=== PATIENT | female | born 1960 | race African-American/Black ===

== ENCOUNTER 2016-10-31 00:12 | Emergency (ER) | payer MEDICARE ==
--- NOTE | 2016-10-31 00:56 | ED ---
Head Injury - HPI Summary HPI Summary: Dementia and Alzheimer's pt here w/ fall from bed tonight. Pt was found by SUPERVISOR CALIBRATION upon answering call sparks sleeping on her Lt side on the floor, parallel to her bed (she resides at [facility]). Laceration over Lt eyebrow - bleeding. Also concern for Lt hip fx - report of leg being longer and externally rotated. No comments in notes if pt is same or worse from baseline mental status. She personally has no comments, non-verbal. Asked multiple times if she is in pain - no response, just staring. Pt appears to take medications for chronic pain (tramadol) and medication for anxiety and insomnia. - History Of Current Complaint Hx Obtained From: Family/Supervisor Photostat - Report from senior living Pain Intensity: 5 <Sommer Juarez - Last Filed: 10/31/16 21:47> <Reynold Garcia - Last Filed: 10/31/16 23:18> - History Of Current Complaint Chief Complaint: EDGeneral Stated Complaint: FALL Time Seen by Provider: 10/31/16 00:28 - Allergies/Home Medications Allergies/Adverse Reactions: Allergies Allergy/AdvReac Type Severity Reaction Status Date / Time No Known Allergies Allergy Verified 10/31/16 00:45 Home Medications: Home Medications Acetaminophen 500 mg PO BID 10/31/16 [History Confirmed 10/31/16] Cholecalciferol [Vitamin D] 2,000 unit PO DAILY 10/31/16 [History Confirmed 02/09] Clonazepam 0.5 mg PO BID 10/31/16 [History Confirmed 10/31/16] Docusate Sodium [Colace] 100 mg PO BID 10/31/16 [History Confirmed 10/31/16] Melatonin 5 mg PO BEDTIME 10/31/16 [History Confirmed 10/31/16] Rivastigmine PATCH 4.6 MG(NF) [Exelon(NF)] 4.6 mg TRANSDERM Q24H 10/31/16 [ History Confirmed 10/31/16] Tramadol HCl [Ultram] 50 mg PO Q6H 10/31/16 [History Confirmed 10/31/16] PMH/Surg Hx/FS Hx/Imm Hx Previously Healthy: Yes Endocrine/Hematology History: Denies: Hx Anticoagulant Therapy Musculoskeletal History: Reports: Other Musculoskeletal History - chronic pain Neurological History: Reports: Other Neuro Impairments/Disorders - dementia, Alzheimer's Psychiatric History: Reports: Other Psychiatric Issues/Disorders - insomnia Infectious Disease History: Unable to Obtain/Confirm Infectious Disease History: Denies: Traveled Outside the [place] in Last 30 Days - Family History Known Family History: Positive: Unknown - pt nonverbal - Social History Occupation: Disabled Lives: At [facility] Alcohol Use: Rare Hx Substance Use: No Substance Use Type: Reports: None Smoking Status (MU): Former Smoker <Sommer Juarez - Last Filed: 10/31/16 21:47> Review of Systems - ROS Summary Review of Systems Summary: Level 5 caveat - severe dementia/non-verbal Skin: Other - see HPI All Other Systems Reviewed And Are Negative: Yes <Sommer Juarez - Last Filed: 10/31/16 21:47> Physical Exam Triage Information Reviewed: Yes Vital Signs On Initial Exam: Initial Vitals Temp Pulse Resp BP Pulse Ox 98.1 F 62 12 124/89 97 10/31/16 00:20 10/31/16 00:20 10/31/16 00:20 10/31/16 00:20 10/31/16 00:20 Vital Signs Reviewed: Yes Appearance: Positive: No Pain Distress - Pt sitting upright in bed - eyes closed. Does not respond to verbal stimulation but does respond to sternal rub by opening eyes - heart rate increases as well, Well-Nourished Skin: Positive: Warm - laceration over Lt eyebrow - crusted, coagulated blood here - bleed easily w/ palpation -no gross deformity, no laxity of bones, no pain response w/ palpation Head/Face: Positive: Other - see above Eyes: Positive: Normal, ANTONIETTA - difficulty assesing EOMI as pt does not respond well to command of moving eyes, Conjunctiva Clear ENT: Positive: Other - unable to asses mouth as pt does not open mouth when asked Dental: Negative: Dental Fracture @ Neck: Positive: Supple, Nontender Respiratory/Lung Sounds: Positive: Clear to Auscultation, Breath Sounds Present. Negative: Rales, Rhonchi, Subcutaneous Emphysema, Stridor, Tracheal Deviation, Wheezes Cardiovascular: Positive: Normal, RRR, Pulses are Symmetrical in both Upper and Lower Extremities, S1, S2. Negative: Murmur, Rub, Leg Edema Left, Leg Edema Right Abdomen Description: Positive: Nontender - pt does not respond to abdominal palpation Bowel Sounds: Positive: Present Musculoskeletal: Positive: Other - pt does not move limbs upon request; she does not respond w/ palpation and passive movement of limbs; she does not appear to have any deformities nor asymmetric findings; legs are equal in length and w/o rotation, specifically hips are palpated and moved as well as femurs, tibias/fibulas, ankles and feet; pt does report she can feel me touching her toes but does not move toes when asked to do so Neurological: Positive: Other - limited d/t dementia - pt does open her eyes at times - again, does not verbally respond to questions but does squeeze my fingers when asked to do so Psychiatric: Positive: Other - non-verbal, no facial expression and eyes closed most of time; when eyes are open, she appears to be following people moving <Sommer Juarez - Last Filed: 10/31/16 21:47> Vital Signs On Initial Exam: Initial Vitals Temp Pulse Resp BP Pulse Ox 98.1 F 62 12 124/89 97 10/31/16 00:20 10/31/16 00:20 10/31/16 00:20 10/31/16 00:20 10/31/16 00:20 <Reynold Garcia - Last Filed: 10/31/16 23:18> Procedures - Laceration/Wound Repair 1 Location: face - Lt eyebrown Description: Linear Length, Depth and Shape: 0.5cm x 3mm Laceration/Wound Explored: clean Closure: Skin Adhesive, SteriStrips Sterile Dressing Applied?: Yes - steristrip/dermabond <Sommer Juarez - Last Filed: 10/31/16 21:47> Diagnostics - Vital Signs Vital Signs Temp Pulse Resp BP Pulse Ox 10/31/16 00:20 98.1 F 62 12 124/89 97 <Sommer Juarez - Last Filed: 10/31/16 21:47> - Vital Signs Vital Signs Temp Pulse Resp BP Pulse Ox 10/31/16 03:30 53 11 103/69 98 10/31/16 03:02 98.4 F 10/31/16 03:00 16 123/79 10/31/16 02:30 64 14 127/75 97 10/31/16 02:00 64 10 117/73 97 10/31/16 01:30 58 10 112/67 97 10/31/16 01:15 107/65 10/31/16 01:05 60 9 96 10/31/16 01:00 58 10 115/78 96 10/31/16 00:30 58 13 116/73 97 10/31/16 00:20 98.1 F 62 12 124/89 97 - Laboratory Lab Results: Lab Results 10/31/16 Range/Units 02:08 POC Glucose (mg/dL) 138 H (74-106) mg/dL Lab Statement: Any lab studies that have been ordered have been reviewed, and results considered in the medical decision making process. <Reynold Garcia - Last Filed: 10/31/16 23:18> Head Injury Course/Dx Course Of Treatment: Pt has severe dementia/alzheimer's disease. She was sent to ED by ambulance for c/o found on floor next to bed w/ head laceration. After pt's repsonse level was established, a thorough examination was performed from head to toe for potential injury. Pt's head and neck were CT'd and WNL. Her Lt eyebrow lac was repaired. D/c instruction clearly indicate when pt should seek medical attention/return to ED. Discussed case w/ Dr. Garcia who agrees w/ plan. - Physician Notifications Discussed Care Of Patient With: Dr. Garcia - also evaluated pt <Sommer Juarez - Last Filed: 10/31/16 21:47> <Reynold Garcia - Last Filed: 10/31/16 23:18> - Diagnoses Provider Diagnoses: Head injury Discharge <Sommer Juarez - Last Filed: 10/31/16 21:47> <Reynold Garcia - Last Filed: 10/31/16 23:18> - Discharge Plan Condition: Stable Disposition: [facility] Patient Education Materials: Fall Prevention for Older Adults (ED), Skin Adhesive Care (ED), Steristrips (ED), Facial Laceration (ED) Referrals: Betty Odom MD [Primary Care Provider] - Additional Instructions: Keep wound area clean and dry - do not remove steristrips - they will come off when they are ready. You may apply ice to the area for swelling reduction. You may provide ibuprofen or tylenol for pain relief. Patient's head and neck CT are without acute findings for fracture, dislocation, etc. Follow-up with PCP this week. If patient reports pain or acts differently, seek medical attention for assessment. *If her baseline mentation changes and/or she develops fever, chills, vomiting, drainage or redness around wound, return to ED
[2016-10-31 03:33] VITALS: BP 103/69
--- NOTE | 2016-10-31 09:56 | RAD ---
Indication: Fall with laceration at the LEFT eyebrow. Baseline dementia. Comparison: None. Technique: Noncontrast CT vertex of skull through foramen magnum. Report: Moderate prominence of the cerebral sulci. Unremarkable ventricles and basal cisterns. Negative for echavarria matter white matter obscuration, intra or extra-axial hemorrhage, or mass effect. Unremarkable orbital contents. Negative for calvarial or skull base fracture. Negative for scalp hematoma. The visualized paranasal sinuses and mastoid air spaces are clear. IMPRESSION: 1. Mild to moderate involutional change. 2. No traumatic injury or acute intracranial process evident.
--- NOTE | 2016-10-31 10:03 | RAD ---
Indication: Fall with laceration over the LEFT eyebrow. Comparison: None. Technique: Noncontrast CT thoracic spine. Multiplanar reformation. Report: Negative for vertebral body or posterior element fracture or facet subluxation at any level. Negative for paravertebral hematoma. Multilevel degenerative spondylosis and posterior element osteoarthritis. Congenitally short pedicles predispose to acquired spinal stenosis. At C2-C3 annular disc bulge results in mild to moderate acquired central canal stenosis. At C3-C4 annular disc bulge results in mild to moderate acquired central canal stenosis and uncinate process spurring results in moderate LEFT foraminal stenosis. At C4-C5 dorsal disc osteophyte complex results in mild to moderate acquired central canal stenosis and uncinate process spurring results in mild RIGHT and moderate LEFT foraminal stenosis. At C5-C6 dorsal disc osteophyte complex results in mild acquired central canal stenosis. Uncinate process spurring and facet joint osteoarthritis results in moderately severe LEFT foraminal stenosis. At C6-C7 dorsal disc osteophyte complex results in mild to moderate acquired central canal stenosis and uncinate process spurring results in moderate LEFT foraminal stenosis. At C7-T1 dorsal disc osteophyte complex results in moderate acquired central canal stenosis and uncinate process spurring and facet joint osteoarthritis results in moderate LEFT foraminal stenosis. IMPRESSION: 1. No evidence for traumatic cervical spine injury. 2. Multilevel degenerative spondylosis and posterior element osteoarthritis superimposed on congenitally short pedicles results in multilevel central canal and foraminal stenosis as described.
== END 2016-10-31 03:02 ==
LOC: ED 00:12
DX: S01.112A Laceration without foreign body of left eyelid and periocular area, initial encounter (principal); W06.XXXA Fall from bed, initial encounter; Y92.129 Unspecified place in nursing home as the place of occurrence of the external cause; G89.29 Other chronic pain; F41.9 Anxiety disorder, unspecified; G47.00 Insomnia, unspecified; G30.9 Alzheimer's disease, unspecified; F02.80 Dementia in other diseases classified elsewhere, unspecified severity, without behavioral disturbance, psychotic disturbance, mood disturbance, and anxiety; S09.90XA Unspecified injury of head, initial encounter
CPT/HCPCS: 12011; 70450; 72125; 99283

== ENCOUNTER 2017-07-23 17:52 | Emergency (ER) | payer MEDICARE, MEDICAID ==
[2017-07-23] MEDS ORDERED: NS 0.9% 1000 ML* 1,000 ML IV SCH (18:45)
--- NOTE | 2017-07-23 19:14 | RAD ---
HISTORY: Fall, head injury COMPARISONS: October 31, 2016 TECHNIQUE: Multiple contiguous axial CT scans were obtained of the head without intravenous contrast. FINDINGS: HEMORRHAGE/INFARCT: There is no hemorrhage or acute infarct. MASSES/SHIFT: There is no mass or shift. EXTRA-AXIAL SPACES: There are no extra-axial fluid collections. SULCI AND VENTRICLES: There is diffuse and proportional enlargement of the sulci and ventricles. CEREBRUM: There are no focal parenchymal abnormalities. BRAINSTEM: There are no focal parenchymal abnormalities. CEREBELLUM: There are no focal parenchymal abnormalities. VESSELS: The vessels are grossly normal. PARANASAL SINUSES: The paranasal sinuses are clear. ORBITS: The orbits are unremarkable. BONES AND SOFT TISSUE: No bone or soft tissue abnormalities are noted. OTHER: None IMPRESSION: NO ACUTE INTRACRANIAL PATHOLOGY.
--- NOTE | 2017-07-23 19:15 | RAD ---
HISTORY: Facial trauma, fall COMPARISONS: None TECHNIQUE: Multiple contiguous axial CT scans were obtained of the face without intravenous contrast, with coronal and sagittal multiplanar reformations. FINDINGS: BONES: There is no displaced fracture or dislocation. The orbital rim is intact. The zygomatic arch is intact. The pterygoid plates are intact. ORBITS: The globes are round. The optic nerves are symmetric. The extraocular musculature is normal. There is no post septal or intraconal inflammatory change. There is no retrobulbar hematoma. PARANASAL SINUSES: The paranasal sinuses are clear. The nasal septum is deviated to the left. BRAIN AND SOFT TISSUE: Unremarkable. OTHER: None. IMPRESSION: NO FACIAL FRACTURE
--- NOTE | 2017-07-23 19:17 | RAD ---
HISTORY: Fall, head trauma COMPARISONS: October 31, 2016 TECHNIQUE: Multiple contiguous axial CT scans were obtained of the cervical spine without intravenous contrast, with coronal and sagittal multiplanar reformations. FINDINGS: BRAIN: The visualized brain is unremarkable CENTRAL CANAL: Evaluation of the central canal is limited on CT technique; however, there is no obvious canalicular mass or epidural hemorrhage. ALIGNMENT: There is straightening of the cervical lordosis. VERTEBRAL BODIES: There is multilevel anterolateral marginal osteophyte formation. There is no displaced fracture. There is fusiform narrowing of the central canal secondary to congenitally short pedicles. JOINTS: There is diffuse and vertebral facet hypertrophic change. There is left grade right neural foraminal narrowing most pronounced at C4-C5, C5-C6, and C6-C7 MUSCULATURE: Unremarkable INTERVERTEBRAL DISCS: There is diffuse loss of intervertebral disc height. AXIAL IMAGES: As noted above, there is fusiform narrowing of the central canal secondary to congenital short pedicles. There is neural foraminal narrowing as right above. SOFT TISSUES: The thyroid gland is heterogeneous. The prevertebral soft tissues are normal. OTHER: None. IMPRESSION: 1. DEGENERATIVE DISC DISEASE AND OSTEOARTHRITIS. 2. NO ACUTE OSSEOUS INJURY TO THE CERVICAL SPINE. 3. FUSIFORM NARROWING OF THE CENTRAL CANAL SECONDARY TO CONGENITALLY SHORT PEDICLES. (THE RIGHT MULTILEVEL NEURAL FORAMINAL NARROWING.
[2017-07-23 19:35] LABS: Hematocrit 35 % (35-47); Hemoglobin 11.2 g/dl (12.0-16.0); Mean Corpuscular HGB Conc 32 g/dl (31-36); Mean Corpuscular Hemoglobin 28 pg (27-31); Mean Corpuscular Volume 87 fL (80-97); Mean Platelet Volume 8 um3 (7.4-10.4); Red Blood Count 3.99 10^6/ul (4.0-5.4); Red Cell Distribution Width 15 % (10.5-15); White Blood Count 11.2 10^3/ul (3.5-10.8)
[2017-07-23 19:51] LABS: Albumin 3.4 g/dL (3.2-5.2); BUN/Creatinine Ratio 31.1 (8-20); C Reactive Protein 3.94 mg/L (< 5.00); Calcium 9.6 mg/dL (8.6-10.3); EGFR African American 130.5 (>60); EGFR Non-African American 101.5 (>60); Globulin 3.7 g/dL (2-4); Total Bilirubin 0.2 mg/dL (0.2-1.0); Total Protein 7.1 g/dL (6.4-8.9)
[2017-07-23] MEDS ORDERED: Lidocaine 1% MPF wEPI 200,000* 30 ML SDV INJ ONE (20:00)
[2017-07-23] MEDS ORDERED: Lidocaine 2% EPI 1:200000 MPF* 20 ML VIAL ONE (20:04)
[2017-07-23 20:32] LABS: TSH (Thyroid Stimulating Horm) 0.35 mcIU/mL (0.34-5.60)
--- NOTE | 2017-07-23 20:35 | PN ---
Progress Note - Progress Note Date of Service: 07/23/17 Note: laceration repair done by Sahra SWAIN right eyebrow laceration 2cm by 1/2cm cleaned area with 100 saline lidocaine with epi prolene 6-0 and chromic gut 6 sutures layered closure 1 deep and 5 superficial
[2017-07-23 22:17] VITALS: BP 131/73
--- NOTE | 2017-07-24 00:10 | ED ---
Lynda Boyle Emily, scribed for ReganCasey on 07/23/17 at 1954 . Head Injury - HPI Summary HPI Summary: UNABLE TO OBTAIN FULL HPI DUE TO LEVEL 5 CAVEAT - LETHARGIC This patient is a 57 year old F BIBA to [facility] with a chief complaint of head injury that occurred at 1700. According to patients mcc, pt fell forward out of wheelchair and hit her forehead. - History Of Current Complaint Chief Complaint: EDHeadInjury Stated Complaint: FALL/FACIAL LAC Time Seen by Provider: 07/23/17 19:19 Hx Obtained From: Family/Box Car Bracer Hx From Patient Unobtainable Due To: Other - Lethargic Onset/Duration: Started Hours Ago, Still Present Severity Currently: Mild Severity Initially: Mild Pain Intensity: 0 Pain Scale Used: 0-10 Numeric - Allergies/Home Medications Allergies/Adverse Reactions: Allergies Allergy/AdvReac Type Severity Reaction Status Date / Time No Known Allergies Allergy Verified 10/31/16 00:45 PMH/Surg Hx/FS Hx/Imm Hx Previously Healthy: No - UNABLE TO OBTAIN FULL Hx DUE TO LEVEL 5 CAVEAT - LETHARGIC Endocrine/Hematology History: Denies: Hx Anticoagulant Therapy, Hx Blood Disorders Musculoskeletal History: Reports: Other Musculoskeletal History - chronic pain Neurological History: Reports: Other Neuro Impairments/Disorders - dementia, Alzheimer's Psychiatric History: Reports: Other Psychiatric Issues/Disorders - insomnia Infectious Disease History: No Infectious Disease History: Denies: Traveled Outside the [place] in Last 30 Days - Family History Known Family History: Positive: Unknown - pt nonverbal - Social History Alcohol Use: Rare Hx Substance Use: No Substance Use Type: Reports: None Smoking Status (MU): Former Smoker Review of Systems - ROS Summary Review of Systems Summary: UNABLE TO OBTAIN FULL ROS DUE TO LEVEL 5 CAVEAT - LETHARGIC Positive: Other - Positive head injury All Other Systems Reviewed And Are Negative: Yes Physical Exam Triage Information Reviewed: Yes Vital Signs On Initial Exam: Initial Vitals Temp Pulse Resp BP Pulse Ox 99.0 F 70 18 136/78 98 07/23/17 18:16 07/23/17 18:16 07/23/17 18:16 07/23/17 18:16 07/23/17 18:16 Vital Signs Reviewed: Yes Completion Of Physical Exam Limited Due To: Level 5 - Lethargic Appearance: Positive: Well-Appearing, No Pain Distress Skin: Positive: Warm, Skin Color Reflects Adequate Perfusion, Dry Head/Face: Positive: Other - 2 cm laceration of the forehead above R eyeball. Eyes: Positive: EOMI, ANTONIETTA ENT: Positive: Normal ENT inspection Neck: Positive: Supple, Nontender Respiratory/Lung Sounds: Positive: Clear to Auscultation, Breath Sounds Present Cardiovascular: Positive: RRR, Pulses are Symmetrical in both Upper and Lower Extremities Abdomen Description: Positive: Nontender, Soft Bowel Sounds: Positive: Present Musculoskeletal: Positive: Normal, Strength/ROM Intact Neurological: Positive: Normal, Sensory/Motor Intact, Other - Lethargic Diagnostics - Vital Signs Vital Signs Temp Pulse Resp BP Pulse Ox 07/23/17 18:30 69 17 136/78 97 07/23/17 18:18 72 16 98 07/23/17 18:16 99.0 F 70 18 127/78 98 - Laboratory Lab Results: Lab Results 07/23/17 07/23/17 Range/Units 19:27 19:27 WBC 11.2 H (3.5-10.8) 10^3/ul RBC 3.99 L (4.0-5.4) 10^6/ul Hgb 11.2 L (12.0-16.0) g/dl Hct 35 (35-47) % MCV 87 (80-97) fL MCH 28 (27-31) pg MCHC 32 (31-36) g/dl RDW 15 (10.5-15) % Plt Count 244 (150-450) 10^3/ul MPV 8 (7.4-10.4) um3 Neut % (Auto) 64.2 (38-83) % Lymph % (Auto) 23.0 L (25-47) % Branch % (Auto) 10.1 H (1-9) % Eos % (Auto) 2.3 (0-6) % Baso % (Auto) 0.4 (0-2) % Absolute Neuts (auto) 7.2 (1.5-7.7) 10^3/ul Absolute Lymphs (auto) 2.6 (1.0-4.8) 10^3/ul Absolute Monos (auto) 1.1 H (0-0.8) 10^3/ul Absolute Eos (auto) 0.3 (0-0.6) 10^3/ul Absolute Basos (auto) 0 (0-0.2) 10^3/ul Absolute Nucleated RBC 0.01 10^3/ul Nucleated RBC % 0 INR (Anticoag Therapy) 0.94 (0.89-1.11) APTT 29.3 (26.0-36.3) seconds Result Diagrams: 07/23/17 19:27 07/23/17 19:27 Lab Statement: Any lab studies that have been ordered have been reviewed, and results considered in the medical decision making process. - CT Maxillofacial CT CT Interpretation Completed By: Radiologist - Maxillofacial CT read by radiologist reveals NO FACIAL FRACTURE. ED physician has reviewed this radiology report and agrees. Cervical Spine CT Interpretation Completed By: Radiologist - Cervical Spine CT read by radiologist reveals 1. DEGENERATIVE DISC DISEASE AND OSTEOARTHRITIS. 2. NO ACUTE OSSEOUS INJURY TO THE CERVICAL SPINE. 3. FUSIFORM NARROWING OF THE CENTRAL CANAL SECONDARY TO CONGENITALLY SHORT PEDICLES. (THE RIGHT MULTILEVEL NEURAL FORAMINAL NARROWING. ED physician has reviewed this radiology report and agrees. Brain CT Interpretation Completed By: Radiologist - Brain CT read by radiologist reveals NO ACUTE INTRACRANIAL PATHOLOGY. ED physician has reviewed this radiology report and agrees. Head Injury Course/Dx Assessment/Plan: Unable to obtain HPI due to level 5 caveat lethargic. This patient is a 57 year old F BIBA to [facility] with a chief complaint of head injury that occurred at 1700. According to patients mcc, pt fell forward out of wheelchair and hit her forehead. PMHx includes. Dementia. Physical Exam Findings. 2 cm laceration of the forehead above R eyeball. Lethargic. Medical Decision Making. Maxillofacial CT read by radiologist reveals NO FACIAL FRACTURE. Cervical Spine CT read by radiologist reveals 1. DEGENERATIVE DISC DISEASE AND OSTEOARTHRITIS. 2. NO ACUTE OSSEOUS INJURY TO THE CERVICAL SPINE. 3. FUSIFORM NARROWING OF THE CENTRAL CANAL SECONDARY TO CONGENITALLY SHORT PEDICLES. (THE RIGHT MULTILEVEL NEURAL FORAMINAL NARROWING. Brain CT read by radiologist reveals NO ACUTE INTRACRANIAL PATHOLOGY. Test results with no significant abnormalities. In the ED course the patient was given fluids and 1% lidocaine. Patient will be discharged with and follow up from PCP. The patient is agreeable with this plan. - Diagnoses Differential Diagnosis/HQI/PQRI: Cerebral Contusion, Concussion With LOC, Hematoma, Intracranial Bleed, Laceration, Orbital Fracture Provider Diagnoses: Head injury, Laceration, Fall, Dementia Discharge - Discharge Plan Condition: Stable Disposition: [facility] Patient Education Materials: Head Injury (ED), Laceration (ED) Referrals: Betty Odom MD [Primary Care Provider] - 3 Days Additional Instructions: Observe patient for 24 hours. Return to the emergency department for changing or worsening symptoms. Urgent care or primary for wound check in 2 days. Urgent care or primary for suture removal in 5 days The documentation as recorded by the Lynda sotelo Emily accurately reflects the service I personally performed and the decisions made by Regan colin Emmanuel.
== END 2017-07-23 22:15 ==
LOC: ED 17:52
DX: S09.90XA Unspecified injury of head, initial encounter (principal); F03.90 Unspecified dementia, unspecified severity, without behavioral disturbance, psychotic disturbance, mood disturbance, and anxiety; Z87.891 Personal history of nicotine dependence; W05.0XXA Fall from non-moving wheelchair, initial encounter; Y92.129 Unspecified place in nursing home as the place of occurrence of the external cause; S01.111A Laceration without foreign body of right eyelid and periocular area, initial encounter
CPT/HCPCS: 12011; 36415; 70450; 70486; 72125; 80053; 83605; 83690; 83735; 84443; 84484; 85025; 85610; 85730; 86140; 99285; J2001

== ENCOUNTER 2017-09-04 12:48 | Emergency (ER) | payer MEDICARE, MEDICAID ==
[2017-09-04 14:09] VITALS: BP 126/82
--- NOTE | 2017-09-04 17:11 | ED ---
Bronwyn Boyle Gabriel, scribed for Addi Courtney MD on 09/04/17 at 1324 . Laceration/Wound HPI - HPI Summary HPI Summary: This patient is a 57 year old F BIBA to [facility]. Patient is nonverbal and severely demented but has a laceration over the right eye. LEVEL 5 CAVEAT: HPI limited due to the patient being nonverbal and severely demented. - History of Current Complaint Stated Complaint: FALLS Time Seen by Provider: 09/04/17 13:05 Hx Obtained From: EMS, Other: - observation Hx From Patient Unobtainable Due To: Other - LEVEL 5 CAVEAT Pain Intensity: 0 - Allergy/Home Medications Allergies/Adverse Reactions: Allergies Allergy/AdvReac Type Severity Reaction Status Date / Time No Known Allergies Allergy Verified 10/31/16 00:45 PMH/Surg Hx/FS Hx/Imm Hx Previously Healthy: No Endocrine/Hematology History: Denies: Hx Anticoagulant Therapy, Hx Blood Disorders Musculoskeletal History: Reports: Other Musculoskeletal History - chronic pain Neurological History: Reports: Hx Dementia, Other Neuro Impairments/Disorders - dementia, Alzheimer's Psychiatric History: Reports: Other Psychiatric Issues/Disorders - insomnia - Immunization History Date of Tetanus Vaccine: unknown Infectious Disease History: No Infectious Disease History: Denies: Traveled Outside the [place] in Last 30 Days - Family History Known Family History: Positive: Unknown - pt nonverbal - Social History Alcohol Use: None Hx Substance Use: No Substance Use Type: Reports: None Smoking Status (MU): Former Smoker Review of Systems All Other Systems Reviewed And Are Negative: No Physical Exam - Summary Physical Exam Summary: Appearance: The patient is well-nourished Patient is poorly responsive but responds to pain with moaning Skin: The skin is warm and dry and skin color reflects adequate perfusion. HEENT: The head is normocephalic and atraumatic. The pupils are equal and reactive. The conjunctivae are clear and without drainage. Nares are patent and without drainage. Mouth reveals moist mucous membranes and the throat is without erythema and exudate. The external ears are intact. The ear canals are patent and without drainage. The tympanic membranes are intact.There is a 2 cm laceration over the right eyebrow. Neck: the neck is supple with full range of motion and non-tender. There are no carotid bruits. There is no neck vein distension. Respiratory: Chest is non-tender. Lungs are clear to auscultation and breath sounds are symmetrical and equal. Cardiovascular: Heart is regular rate and rhythm. There is no murmur or rub auscultated. There is no peripheral edema and pulses are symmetrical and equal. Abdomen: The abdomen is soft and non-tender. There are normal bowel sounds heard in all four quadrants and there is no organomegaly palpated. Musculoskeletal: There is no back tenderness noted. Extremities are non-tender with full range of motion. There is good capillary refill. There is no peripheral edema or calf tenderness elicited.. There seems to be no tenderness except to the laceration. Neurological: Patient is alert. The patient has symmetrical motor strength in all four extremities. Cranial nerves are grossly intact. Deep tendon reflexes are symmetrical and equal in all four extremities. LEVEL 5 CAVEAT: HPI limited due to the patient being nonverbal and severely demented. Triage Information Reviewed: Yes Vital Signs On Initial Exam: Initial Vitals Temp Pulse Resp BP Pulse Ox 98.5 F 62 16 104/64 100 09/04/17 12:53 09/04/17 12:53 09/04/17 12:53 09/04/17 12:53 09/04/17 12:53 Vital Signs Reviewed: Yes Completion Of Physical Exam Limited Due To: Level 5 - [place] Coma Scale Coma Scale Total: 11 Procedures - Laceration/Wound Repair 1 Location: head - above right eye Description: Linear Anesthesia: Local, 1.0% - lido Length, Depth and Shape: 2cm Betadine Prep?: No - Hibiclens Laceration/Wound Explored: clean Closure: Single Layer Suture Type: Nylon - 6.0 Number of Sutures: 7 Diagnostics - Vital Signs Vital Signs Temp Pulse Resp BP Pulse Ox 09/04/17 13:00 62 100 09/04/17 12:58 61 104/64 100 09/04/17 12:55 86 100 09/04/17 12:53 98.5 F 62 16 104/64 100 - Laboratory Lab Statement: Any lab studies that have been ordered have been reviewed, and results considered in the medical decision making process. Laceration Repair Course/Dx - Course Course Of Treatment: Ms. Lopes has severe dementia and has fallen out of her wheelchair many times. She sustained a laceration to her right forehead above her eyebrow today. It is hard to guage how she is doing as she is nonverbal at baseline. Her MOLST is clear that heroic measures are not wanted and therefore I will not obtain a CT at this time. I did repair her laceration. - Clinical Impression Provider Diagnoses: Facial laceration, Head injury Discharge - Discharge Plan Condition: Stable Disposition: HOME Patient Education Materials: Stitches Removal (ED) Referrals: Betty Odom MD [Primary Care Provider] - 5 Days Additional Instructions: Sutures can be removed after 5 days. RETURN TO THE EMERGENCY DEPARTMENT FOR CHANGING OR WORSENING SYMPTOMS. The documentation as recorded by the Bronwyn sotelo Gabriel accurately reflects the service I personally performed and the decisions made by me, Addi Courtney MD.
== END 2017-09-04 15:04 | disposition home or self-care (01) ==
LOC: ED 12:48
DX: S01.111A Laceration without foreign body of right eyelid and periocular area, initial encounter (principal); W05.0XXA Fall from non-moving wheelchair, initial encounter; Y93.9 Activity, unspecified; Y92.9 Unspecified place or not applicable; F03.90 Unspecified dementia, unspecified severity, without behavioral disturbance, psychotic disturbance, mood disturbance, and anxiety; Z87.891 Personal history of nicotine dependence
CPT/HCPCS: 12011; 99282

== ENCOUNTER 2017-09-23 16:15 | Emergency (ER) | payer MEDICARE, MEDICAID ==
--- NOTE | 2017-09-23 17:23 | RAD ---
INDICATION: Head injury. COMPARISON: Comparison is made with a prior study from July 15, 2017. TECHNIQUE: Contiguous axial sections of the brain were obtained from the skull base to the vertex without contrast. The exam is slightly limited due to motion artifact. FINDINGS: The ventricles, cisterns and sulci are within normal limits. No significant focal abnormality or mass effect is seen. There is no evidence for hemorrhage. There is focal soft tissue swelling in the scalp anterior to the frontal bones. No fracture is seen. The visualized portion of the paranasal sinuses and mastoid air cells appear clear. IMPRESSION: SLIGHTLY LIMITED EXAM, NO EVIDENCE FOR ACUTE INTRACRANIAL ABNORMALITY.
[2017-09-23 17:47] LABS: Hematocrit 38 % (35-47); Hemoglobin 12.1 g/dl (12.0-16.0); Mean Corpuscular HGB Conc 32 g/dl (31-36); Mean Corpuscular Hemoglobin 27 pg (27-31); Mean Corpuscular Volume 84 fL (80-97); Mean Platelet Volume 9 um3 (7.4-10.4); Platelet Count 199 10^3/ul (150-450); Red Blood Count 4.46 10^6/ul (4.0-5.4); Red Cell Distribution Width 13 % (10.5-15); White Blood Count 9.8 10^3/ul (3.5-10.8)
[2017-09-23 18:00] LABS: EGFR Non-African American 94.3 (>60)
[2017-09-23 18:02] LABS: Urine Appearance Cloudy; Urine Blood 1+ (Negative); Urine Color Yellow; Urine Ketones Negative (Negative); Urine Protein Negative (Negative); Urine Specific Gravity 1.029 (1.010-1.030); Urine Urobilinogen Negative (Negative)
--- NOTE | 2017-09-23 18:15 | RAD ---
INDICATION: Trauma. COMPARISON: Comparison is made with a prior CT of the brain from July 23, 2017. TECHNIQUE: Contiguous axial sections were obtained from the skull base through the T2 vertebra. Images were reconstructed in the sagittal and coronal planes. FINDINGS: There is straightening of the cervical spine with loss of the normal cervical lordosis. No prevertebral soft tissue swelling or fracture is seen. There is a faint renal lucent line extending through the lamina of the C2 vertebra on the right side which appears to correspond with a nutrient foramen. There are congenitally short pedicles giving rise to congenital spinal canal stenosis. At the C3-C4 level there is mild posterior uncinate process spurring and mild hypertrophic changes within the facet joints. There appears to be moderate spinal canal narrowing and moderate bilateral neural foraminal narrowing. At the C4-C5 level there is posterior uncinate process spurring and hypertrophic changes within the facet joints. There is moderate to severe spinal canal narrowing and moderate to severe bilateral neural foraminal narrowing. At the C5-C6 level there is posterior uncinate process spurring which is most prominent posterior laterally toward the left side giving rise to moderate spinal canal narrowing. There is mild neural foraminal narrowing on the right side and moderate to severe neural foraminal narrowing on the left side. At the C6-C7 level there is posterior uncinate process spurring. This gives rise to moderate spinal canal narrowing and moderate neural foraminal narrowing on the left side. At the C7-T1 level there is posterior uncinate process spurring giving rise moderate spinal canal narrowing and moderate neural foraminal narrowing on the left side. IMPRESSION: 1. STRAIGHTENING OF THE CERVICAL SPINE, NO EVIDENCE FOR FRACTURE OR SUBLUXATION. 2. CONGENITALLY SHORT PEDICLES AND DIFFUSE DEGENERATIVE DISC DISEASE AND FACET OSTEOARTHRITIS GIVING RISE TO SIGNIFICANT SPINAL CANAL NARROWING AT MULTIPLE LEVELS DESCRIBED.
--- NOTE | 2017-09-23 18:53 | RAD ---
INDICATION: Correlation responsive, status post fall. COMPARISON: There are no prior studies available for comparison. TECHNIQUE: A portable view of the chest was obtained. FINDINGS: Cardiac and mediastinal contours appear to be within normal limits. The lungs are underinflated and clear. No pleural effusion or pneumothorax is seen. IMPRESSION: NO EVIDENCE FOR ACUTE DISEASE.
[2017-09-23 22:21] VITALS: BP 114/73
--- NOTE | 2017-10-04 11:44 | ED ---
Ignacio Boyle Angela scribed for Sanjiv Siu MD on 09/23/17 at 1622 . Adult Trauma - HPI Summary HPI Summary: This pt is a 57 y/o female presenting to [facility] via EMS from [facility] after an unwitnessed fall. Pt is nonverbal, she has severe dementia. per EMS report, pt fell from her wheelchair. Pt was found face down on the floor in [facility]. Pt had another fall last week on 09/05/17 where she sustained a laceration above her right eyebrow. HPI IS LIMITED DUE TO LEVEL 5 CAVEAT - pt is nonverbal and is demented. - History of Current Complaint Stated Complaint: FALL Time Seen by Provider: 09/23/17 16:19 Hx Obtained From: Patient Hx From Patient Unobtainable Due To: Other - pt is nonverbal Mechanism of Injury: Fall Loss of Consciousness: unsure Onset/Duration: Started Hours Ago, Traumatic Pain Scale Used: unknown - level 5 caveat: pt is nonverbal Aggravating Factor(s): Other - unknown Alleviating Factor(s): Other - unknown - Allergy/Home Medications Allergies/Adverse Reactions: Allergies Allergy/AdvReac Type Severity Reaction Status Date / Time No Known Allergies Allergy Verified 10/31/16 00:45 PMH/Surg Hx/FS Hx/Imm Hx Endocrine/Hematology History: Denies: Hx Anticoagulant Therapy, Hx Blood Disorders Musculoskeletal History: Reports: Other Musculoskeletal History - chronic pain Neurological History: Reports: Hx Dementia, Other Neuro Impairments/Disorders - dementia, Alzheimer's Psychiatric History: Reports: Other Psychiatric Issues/Disorders - insomnia - Immunization History Date of Tetanus Vaccine: unknown - Family History Known Family History: Positive: Unknown - pt nonverbal - Social History Alcohol Use: None Hx Substance Use: No Substance Use Type: Reports: None Smoking Status (MU): Former Smoker Review of Systems - ROS Summary Review of Systems Summary: ROS IS LIMITED DUE TO LEVEL 5 CAVEAT - Pt is nonverbal. Negative: Fever Neurological: Other - dementia. Fall today. All Other Systems Reviewed And Are Negative: No Physical Exam - Summary Physical Exam Summary: Constitutional: Well-developed, Well-nourished, Alert. Pt is resisting attempts to open her eyes. Withdraws from painful stimulus. Skin: Warm, Dry HENT: Normocephalic; No Racoons eyes; No battles sign; No abrasion; No contusion ; No hemotympanum; No maxilla facial tenderness or instability; Dentition are smooth; No dental trauma; No trismus. There are sutures above her right eyebrow that appear to be healing into the wound. Eyes: EOM normal, PERRL Neck: Trachea is midline. No stridor; No JVD; No step off; No posterior cervical spine tenderness Cardio: Rhythm regular, rate normal Heart sounds normal; Intact distal pulses; The pedal pulses are 2+ and symmetric. Radial pulses are 2+ and symmetric. Pulmonary/Chest wall: Effort normal; Breath sounds normal; Equal chest rise; No flail segment; No rib tenderness; No sternal tenderness Abd: Soft, Appearance normal. No distension; No tenderness; No palpable pulsatile mass; No Cullens sign; No Clark-Turners sign Musculoskeletal: Full ROM and no tenderness at hips, ankles, shoulders, elbows and knees; No joint swelling; No vertebral body tenderness; No paraspinal tenderness; No step off or deformity of the spine; Pelvis is stable to lateral compression and rock Neuro: Alert. Strength 5/5 all extremities. Pt is resisting attempts to open her eyes. Withdraws from painful stimulus. : No blood at urethral meatus Psych: Mood and affect Normal Triage Information Reviewed: Yes Vital Signs Reviewed: Yes Diagnostics - Laboratory Result Diagrams: 09/23/17 17:35 09/23/17 17:35 Lab Statement: Any lab studies that have been ordered have been reviewed, and results considered in the medical decision making process. - Radiology Chest XR Xray Interpretation: No Acute Changes - IMPRESSION: No evidence for acute disease. Dr. Siu has reviewed this radiology report. Radiology Interpretation Completed By: Radiologist - CT Brain CT CT Interpretation: No Acute Changes - IMPRESSION: Slightly limited exam. No evidence for acute intracranial abnormality. Dr. Siu has reviewed this radiology report. CT Interpretation Completed By: Radiologist Cervical spine CT CT Interpretation: Positive (See Comments) - IMPRESSION: 1. Straightening of the cervical spine, no evidence for fracture or subluxation. 2. Congenitally short pedicles and diffuse degenerative disc disease and facet osteoarthritis giving rise to significant spinal canal narrowing at multiple levels as described. Dr. Siu has reviewed this radiology report. CT Interpretation Completed By: Radiologist Adult Trauma Course/Dx - Course Course Of Treatment: This pt is a 57 y/o female presenting to [facility] via EMS from [facility] after a fall. Pt is nonverbal, she has severe dementia. per EMS report, pt was found face down on the floor in [facility]. Pt had another fall last week on 09/05/17 where she sustained a laceration above her right eyebrow. HPI IS LIMITED DUE TO LEVEL 5 CAVEAT - pt is nonverbal and is demented. Brain CT shows slightly limited exam. No evidence for acute intracranial abnormality. Chest XR is negative. Cervical CT is negative for fracture. Pt's sutures were removed from prior laceration to right eyebrow on 09/04/17. Pt will be discharged to home. - Diagnoses Provider Diagnoses: Polypharmacy, Fall Discharge - Discharge Plan Condition: Stable Disposition: HOME Patient Education Materials: Fall Prevention (ED) Referrals: Betty Odom MD [Primary Care Provider] - Additional Instructions: Please follow up with your primary care provider. RETURN TO THE EMERGENCY DEPARTMENT FOR CHANGING OR WORSENING SYMPTOMS. The documentation as recorded by the Ignacio sotelo Angela accurately reflects the service I personally performed and the decisions made by , Sanjiv Siu MD.
== END 2017-09-23 22:21 | disposition home or self-care (01) ==
LOC: ED 16:15
DX: T50.901A Poisoning by unspecified drugs, medicaments and biological substances, accidental (unintentional), initial encounter (principal); F03.90 Unspecified dementia, unspecified severity, without behavioral disturbance, psychotic disturbance, mood disturbance, and anxiety; Z91.81 History of falling
CPT/HCPCS: 36415; 70450; 71010; 72125; 80053; 81003; 81015; 83605; 85027; 99282

== ENCOUNTER 2017-12-08 23:06 | Emergency (ER) | payer MEDICARE, MEDICAID ==
[2017-12-08] MEDS ORDERED: Ketorolac INJ* 30 MG/ML 1 ML VIAL IV PUSH ONE (23:53)
[2017-12-08] MEDS ORDERED: Metoclopramide IV* 5 MG/ML 2 ML VIAL IV SLOW PU ONE (23:53)
[2017-12-09 00:38] LABS: ABS Basophils 0 10^3/ul (0-0.2); ABS Eosinophils 0 10^3/ul (0-0.6); ABS Lymphocytes 0.8 10^3/ul (1.0-4.8); ABS Monocytes 0.8 10^3/ul (0-0.8); ABS Neutrophils 16.1 10^3/ul (1.5-7.7); ABS Nucleated RBC 0 10^3/ul; Eosinophil % 0 % (0-6); Hematocrit 34 % (35-47); Hemoglobin 11.3 g/dl (12.0-16.0); Lymphocyte % 4.6 % (25-47); Mean Corpuscular HGB Conc 33 g/dl (31-36); Mean Corpuscular Hemoglobin 28 pg (27-31); Mean Corpuscular Volume 83 fL (80-97); Mean Platelet Volume 9 um3 (7.4-10.4); Nucleated Red Blood Cells % 0.1; Platelet Count 229 10^3/ul (150-450); Red Blood Count 4.11 10^6/ul (4.0-5.4); Red Cell Distribution Width 17 % (10.5-15); White Blood Count 17.8 10^3/ul (3.5-10.8)
[2017-12-09 01:37] LABS: Urine Appearance Cloudy; Urine Blood Negative (Negative); Urine Color Yellow; Urine Ketones Negative (Negative); Urine Protein Negative (Negative); Urine Specific Gravity 1.025 (1.010-1.030); Urine Urobilinogen Negative (Negative)
[2017-12-09] MEDS ORDERED: Metoclopramide IV* 5 MG/ML 2 ML VIAL IV ONE (05:17)
[2017-12-09] MEDS ORDERED: PROCHLORPERAZINE INJ 5 MG/ML 2 ML VIAL IV ONE (08:02)
[2017-12-09] MEDS ORDERED: Levofloxacin 750 MG IVPREMIX(* 750 MG/150 ML BAG IVPB ONE (08:09)
--- NOTE | 2017-12-09 08:11 | RAD ---
INDICATION: Vomiting COMPARISON: None TECHNIQUE: Noncontrast axial source images were obtained from the hemidiaphragms to the symphysis pubis. This examination was ordered using a renal stone protocol which is performed without oral or intravenous contrast and therefore has inherent limitations when used to evaluate other intra-abdominal or intrapelvic pathology. Consider conventional contrast enhanced imaging if clinically indicated. Examination is further limited by positioning and by artifacts patient's arms which could not be raised over her head. Lung bases: There is patchy infiltrative change in both lung bases. This could be acute or chronic Liver: The liver is normal in size. Noncontrast imaging shows no evidence of a hepatic mass or ductal dilatation. Gallbladder: There are no calcified gallstones. There is no evidence of wall thickening or pericholecystic fluid.. Spleen: Limited evaluation. No gross abnormalities. Pancreas: Very limited evaluation. Adrenal glands: Adrenal glands not well evaluated. Kidneys/Bladder: No hydronephrosis or renal stone. No mass on noncontrast evaluation. Adenopathy: No gross adenopathy. Fluid collections: There are no free or localized fluid collections. Vessels: There are atherosclerotic changes of the aorta and iliac vessels. There is no focal aneurysm. The IVC appears normal Pelvic organs: There is midline, heterogeneous pelvic mass most consistent with enlarged uterus with multiple fibroids. This measures approximately 14.5 x 12.5 x 9.5 cm. Suggest pelvic sonography. No definitive adnexal mass GI tract: Evaluation of the bowel is limited without oral contrast. There is large amount retained stool. Soft tissues: Simultaneous edema suggestive of anasarca. Osseous structures: There are no acute osseous findings. IMPRESSION: 1. Extremely limited examination due to positioning and due to lack of contrast. 2. Bibasilar lung abnormalities. Acute pneumonitis not excluded. 3. Large midline pelvic mass. This may resent a fibroid uterus but follow-up sonography as indicated. 4. Large amount retained stool.
--- NOTE | 2017-12-09 08:27 | RAD ---
INDICATION: Seizure. COMPARISON: Comparison is made with a prior CT of the brain from September 23, 2017. TECHNIQUE: Contiguous axial sections of the brain were obtained from the skull base to the vertex without contrast. The exam is limited due to motion artifact. FINDINGS: The ventricles, cisterns and sulci are mildly prominent consistent with mild atrophy. No significant focal abnormality or mass effect is seen. There is no evidence for hemorrhage. No significant focal osseous abnormality is seen. The visualized portion of the paranasal sinuses and mastoid air cells appear clear. IMPRESSION: LIMITED STUDY, NO EVIDENCE FOR ACUTE INTRACRANIAL ABNORMALITY.
[2017-12-09] MEDS ORDERED: PROCHLORPERAZINE INJ 5 MG/ML 2 ML VIAL IV PRN (09:37)
[2017-12-09 11:04] VITALS: BP 122/70
--- NOTE | 2017-12-09 15:45 | ED ---
Bronwyn Boyle Gabriel, scribed for Prince Leigh MD on 12/08/17 at 2356 . GI/ HPI - HPI Summary HPI Summary: This patient is a 57 year old F BIBA to [facility] from [facility] to be evaluated for yellow emesis. The patient is non-verbal and not accompanied by anyone. LEVEL 5 CAVEAT: HPI Limited due to the patient have dementia and being non-verbal. Per nursing staff, pt found sindy have seizure like activity x1 lasting several seconds with subsequent vomiting. Pt then found by staff to have decreased bowel sounds and "pain" at LLQ. Pt with no fever, cough or chills. - History of Current Complaint Chief Complaint: EDNauseaVomitDiarrh Time Seen by Provider: 12/08/17 23:37 Stated Complaint: ABD PAIN/VOMITING Hx Obtained From: Medical Records Onset/Duration: Still Present Timing: Constant Pain Intensity: 0 - Allergy/Home Medications Allergies/Adverse Reactions: Allergies Allergy/AdvReac Type Severity Reaction Status Date / Time No Known Allergies Allergy Verified 10/31/16 00:45 PMH/Surg Hx/FS Hx/Imm Hx Endocrine/Hematology History: Denies: Hx Anticoagulant Therapy, Hx Blood Disorders Musculoskeletal History: Reports: Other Musculoskeletal History - chronic pain Neurological History: Reports: Hx Dementia, Other Neuro Impairments/Disorders - dementia, Alzheimer's Psychiatric History: Reports: Other Psychiatric Issues/Disorders - insomnia - Immunization History Date of Tetanus Vaccine: unknown Infectious Disease History: No Infectious Disease History: Denies: Traveled Outside the [place] in Last 30 Days - Family History Known Family History: Positive: Unknown - pt nonverbal - Social History Alcohol Use: None Hx Substance Use: No Substance Use Type: Reports: None Smoking Status (MU): Former Smoker Review of Systems - ROS Summary Review of Systems Summary: LEVEL 5 CAVEAT: ROS Limited due to the patient have dementia and being non- verbal. All Other Systems Reviewed And Are Negative: No Physical Exam - Summary Physical Exam Summary: Appearance: elderly cachectic Skin: Warm, color reflects adequate perfusion Head: Normal Head/Face inspection Eyes: Conjunctiva clear ENT: MMM dry - mild Neck: Supple, no nodes, no JVD. Respiratory: Lungs clear, Normal breath sounds, no respiratory distress Cardio: RRR, No murmur, pulses normal, brisk capillary refill Abdomen: soft, no distention no guarding, no rebound Bowel sounds: present Neuro - awake, severe dementia Triage Information Reviewed: Yes Vital Signs On Initial Exam: Initial Vitals Temp Pulse Resp BP Pulse Ox 98.2 F 95 16 126/89 94 12/08/17 23:13 12/08/17 23:13 12/08/17 23:13 12/08/17 23:13 12/08/17 23:13 Vital Signs Reviewed: Yes Diagnostics - Vital Signs Vital Signs Temp Pulse Resp BP Pulse Ox 12/08/17 23:13 98.2 F 95 16 126/89 94 - Laboratory Lab Results: Lab Results 12/09/17 12/09/17 12/09/17 Range/Units 00:20 00:20 01:23 WBC 17.8 H (3.5-10.8) 10^3/ul RBC 4.11 (4.0-5.4) 10^6/ul Hgb 11.3 L (12.0-16.0) g/dl Hct 34 L (35-47) % MCV 83 (80-97) fL MCH 28 (27-31) pg MCHC 33 (31-36) g/dl RDW 17 H (10.5-15) % Plt Count 229 (150-450) 10^3/ul MPV 9 (7.4-10.4) um3 Neut % (Auto) 90.5 H (38-83) % Lymph % (Auto) 4.6 L (25-47) % [place] % (Auto) 4.6 (0-7) % Eos % (Auto) 0 (0-6) % Baso % (Auto) 0.3 (0-2) % Absolute Neuts (auto) 16.1 H (1.5-7.7) 10^3/ul Absolute Lymphs (auto) 0.8 L (1.0-4.8) 10^3/ul Absolute Monos (auto) 0.8 (0-0.8) 10^3/ul Absolute Eos (auto) 0 (0-0.6) 10^3/ul Absolute Basos (auto) 0 (0-0.2) 10^3/ul Absolute Nucleated RBC 0 10^3/ul Nucleated RBC % 0.1 Sodium 139 (133-145) mmol/L Potassium 3.5 (3.5-5.0) mmol/L Chloride 105 (101-111) mmol/L Carbon Dioxide 25 (22-32) mmol/L Anion Gap 9 (2-11) mmol/L BUN 9 (6-24) mg/dL Creatinine 0.69 (0.51-0.95) mg/dL Est GFR ( Amer) 113.2 (>60) Est GFR (Non-Af Amer) 88.0 (>60) BUN/Creatinine Ratio 13.0 (8-20) Glucose 138 H (70-100) mg/dL Calcium 9.7 (8.6-10.3) mg/dL Total Bilirubin 0.50 (0.2-1.0) mg/dL AST 17 (13-39) U/L ALT 12 (7-52) U/L Alkaline Phosphatase 52 (34-104) U/L Total Protein 6.9 (6.4-8.9) g/dL Albumin 3.7 (3.2-5.2) g/dL Globulin 3.2 (2-4) g/dL Albumin/Globulin Ratio 1.2 (1-3) Urine Color Yellow Urine Appearance Cloudy Urine pH 5.0 (5-9) Ur Specific [place] 1.025 (1.010-1.030) Urine Protein Negative (Negative) Urine Ketones Negative (Negative) Urine Blood Negative (Negative) Urine Nitrate Negative (Negative) Urine Bilirubin Negative (Negative) Urine Urobilinogen Negative (Negative) Ur Leukocyte Esterase Negative (Negative) Urine Glucose Negative (Negative) Urine Ascorbic Acid * A (Negative) Result Diagrams: 12/09/17 00:20 12/09/17 00:20 Lab Statement: Any lab studies that have been ordered have been reviewed, and results considered in the medical decision making process. - CT CT Head CT Interpretation Completed By: ED Physician - hyper inflated lung jhaveri consistent with COPD. No infectious process Re-Evaluation - Re-Evaluation First Eval Re-Evaluation Time: 01:42 Change: Improved - Pt now comfortable in bed. pt with no vomiting in the ED. Pt now much more relaxed and calm. Will continue to monitor Second Eval Re-Evaluation Time: 03:50 Change: Worse - Pt with two episodes of green emesis. Spoke with Retirement provider who states pt experienced an seizure this evening with subsequent vomiting x2. Casey give second dose Reglan and obtain CT head/abd/pel Third Eval Re-Evaluation Time: 06:04 Change: Improved - Ptr with no vomiting at this time. Pt awaiting CT scan results. Fourth Eval Re-Evaluation Time: 08:10 Comment: Pt with third episode of vomiting in the ED. Pt CT head negative for acute pathology. Pt with CT abd/pel suggestive of bibasilar PNA/pneumonitis acute vs chronic, however pt with no URI symptoms. Pt with no seizure or seizure -like activity in the ED. Will give dose IV Levaquin and IV antiemetic. Pt with comfort measures only at this time. will tx symptomatically with transprt back to nursing facility for continued care. GIGU Course/Dx - Diagnoses Differential Diagnoses - Female: Abdominal Aortic Aneurysm, Appendicitis, Bladder Dysfunction, Cervicitis, Constipation, Dehydration, Diverticulitis, Enterocolitis, Gerd, Neoplasm, Urinary Tract Infection Provider Diagnoses: Constipation, Vomiting, Pneumonitis Discharge - Discharge Plan Condition: Improved Disposition: HOME Prescriptions: Levofloxacin TAB* [Levaquin TAB*] 750 mg PO DAILY 5 Days #5 tab Ondansetron [Zofran Odt] 4 mg PO Q6HR PRN 3 Days #10 tab.rapdis PRN Reason: Vomiting Ondansetron [Zofran Odt] 8 mg PO Q6HR PRN 3 Days #10 tab.rapdis PRN Reason: Vomiting Patient Education Materials: Acute Nausea and Vomiting (ED), Bacterial Pneumonia (ED) Referrals: Olegario Monroy MD [Primary Care Provider] - The documentation as recorded by the Bronwyn sotelo Gabriel accurately reflects the service I personally performed and the decisions made by , Prince Leigh MD.
== END 2017-12-09 11:03 | disposition home or self-care (01) ==
LOC: ED 23:06
DX: K59.00 Constipation, unspecified (principal); R11.10 Vomiting, unspecified; J18.9 Pneumonia, unspecified organism; R10.32 Left lower quadrant pain; Z87.891 Personal history of nicotine dependence
CPT/HCPCS: 36415; 70450; 74176; 80053; 81003; 85025; 96374; 96375; 99284; J0780; J1885; J2765

== ENCOUNTER 2018-05-13 17:53 | Emergency (ER) | payer MEDICARE, MEDICAID ==
--- NOTE | 2018-05-13 18:48 | ED ---
Head Injury - HPI Summary HPI Summary: 58-year-old male presents with head injury today. Per EMS she moved her legs and forced herself over the edge of a recliner. She has hematoma noted to left side of her face. Did not lose consciousness. Was mechanical fall. No other injury known. Is not on blood thinners. No vomiting. Patient is nonverbal at baseline and only moans. No change in mental status per EMS. Level V caveat due to dementia. she is a resident at [facility]. patient will respond to [facility]. - History Of Current Complaint Chief Complaint: EDHeadInjury Stated Complaint: INJURY AFTER FALL Time Seen by Provider: 05/13/18 18:05 Pain Intensity: 0 - Allergies/Home Medications Allergies/Adverse Reactions: Allergies Allergy/AdvReac Type Severity Reaction Status Date / Time No Known Allergies Allergy Verified 10/31/16 00:45 Home Medications: Home Medications Dulcolax Supp* 10 mg DC DAILY 05/13/18 [History Confirmed 05/13/18] Haldol TAB* 0.5 mg PO DAILY 05/13/18 [History Confirmed 05/13/18] Morphine Sulfate 0.5 ml PO Q1HR PRN 05/13/18 [History Confirmed 05/13/18] Morphine Sulfate 0.5 ml PO QID 05/13/18 [History Confirmed 05/13/18] Reglan 5 mg PO BID 05/13/18 [History Confirmed 05/13/18] Senna-S Tablet 8.6 - 50 mg PO BID 05/13/18 [History Confirmed 05/13/18] Sorbitol 45 ml PO DAILY 05/13/18 [History Confirmed 05/13/18] Valproic Acid LIQ(*) 15 ml PO BID 05/13/18 [History Confirmed 05/13/18] fentaNYL PATCH 50 MCG/HR* 50 mcg TRANSDERM Q72HR 05/13/18 [History Confirmed ] PMH/Surg Hx/FS Hx/Imm Hx Endocrine/Hematology History: Denies: Hx Anticoagulant Therapy, Hx Blood Disorders Musculoskeletal History: Reports: Other Musculoskeletal History - chronic pain Neurological History: Reports: Hx Dementia, Other Neuro Impairments/Disorders - dementia, Alzheimer's Psychiatric History: Reports: Other Psychiatric Issues/Disorders - insomnia - Immunization History Date of Tetanus Vaccine: unknown Infectious Disease History: No Infectious Disease History: Denies: Traveled Outside the [place] in Last 30 Days - Family History Known Family History: Positive: Unknown - pt nonverbal - Social History Alcohol Use: None Hx Substance Use: No Substance Use Type: Reports: None Smoking Status (MU): Former Smoker Review of Systems Negative: Fever Negative: Cough Neurological: Other - head injury All Other Systems Reviewed And Are Negative: Yes Physical Exam Triage Information Reviewed: Yes Vital Signs On Initial Exam: Initial Vitals Temp Pulse Resp BP Pulse Ox 98.7 F 78 18 142/79 97 05/13/18 18:01 05/13/18 18:01 05/13/18 18:01 05/13/18 18:01 05/13/18 18:01 Vital Signs Reviewed: Yes Completion Of Physical Exam Limited Due To: Dementia Skin: Positive: Warm, Dry Head/Face: Positive: Other - hematoma on left side of face Eyes: Positive: EOMI, ANTONIETTA, Conjunctiva Clear ENT: Positive: Pharynx normal Neck: Positive: Other: - nontender neck Respiratory/Lung Sounds: Positive: Clear to Auscultation, Breath Sounds Present , Other - no brusing noted Cardiovascular: Positive: Normal, RRR Abdomen Description: Positive: Nontender, Soft, Other: - no brusing noted Bowel Sounds: Positive: Present Musculoskeletal: Positive: Strength/ROM Intact - moving all extremities, Other - good pulses Neurological: Positive: Sensory/Motor Intact, Other - tracts objects, opens mouth. Negative: Alert, Oriented to Person Place, Time Psychiatric: Positive: Normal - [place] Coma Scale Best Eye Response: 4 - Spontaneous Best Motor Response: 6 - Obeys Commands Best Verbal Response: 2 - Incomprehensible Words Coma Scale Total: 12 Diagnostics - Vital Signs Vital Signs Temp Pulse Resp BP Pulse Ox 05/13/18 18:01 98.7 F 78 18 142/79 97 - Laboratory Lab Statement: Any lab studies that have been ordered have been reviewed, and results considered in the medical decision making process. Re-Evaluation - Re-Evaluation First Eval Re-Evaluation Time: 21:09 Change: Unchanged Comment: patient still agitated after medication. discussed with dr hector that has been observed for 3 hours with no change in mental status so will send back as patient is comfort care only and will not change anything if sedate patient and get CT. Head Injury Course/Dx Course Of Treatment: 58-year-old male presents with head injury today. Per EMS she moved her legs and forced herself over the edge of a recliner. She has hematoma noted to left side of her face. Did not lose consciousness. Was mechanical fall. No other injury known. Is not on blood thinners. No vomiting. Patient is nonverbal at baseline and only moans. No change in mental status per EMS. Level V caveat due to dementia. on exam has hematoma to left side of face, able to open mouth, no laceration noted or loose teeth. EOMI and ANTONIETTA and tracts objects. otherwise unable to assess neuro status due to dementia. no other injury noted. no one from [facility] came with patient. attempted to get CT and unable to get it as patient will not sit still. patient molest states comfort care only. left vm with patient daughter to see if would like patient sedated for imaging or if just observe. patient in ED for 3 hours as is at baseline. discussed with dr hector and said give benadryl and pain medication to see if had sedate her a little. medication had no affect on agitation. discussed with dr hector as has same mental status in ED after observation can send back with instruction of reasons to return to ED. - Diagnoses Differential Diagnosis/HQI/PQRI: Concussion Without LOC, Contusion, Intracranial Bleed Provider Diagnoses: Head injury, Fall, Facial hematoma Discharge - Sign-Out/Discharge Documenting (check all that apply): Patient Departure - Discharge Plan Condition: Stable Disposition: HOME Patient Education Materials: Head Injury (ED), Contusion in Adults (ED) Referrals: Olegario Monroy MD [Primary Care Provider] - Additional Instructions: patient was observed in ED for 3 hours with no change in mental status place ice on area Take normal pain medication Follow up with primary within 5 days Return to ED if develop vomiting, change in mental status or any new or worsening symptoms - Billing Disposition and Condition Condition: STABLE Disposition: Home
[2018-05-13] MEDS ORDERED: diPHENhydraMINE PO* 25 MG PO ONE (19:57)
[2018-05-13] MEDS ORDERED: diPHENhydraMINE PO* 50 MG PO ONE (19:58)
[2018-05-13] MEDS ORDERED: oxyCODONE TAB* 5 MG TAB PO ONE (20:20)
[2018-05-13 22:58] VITALS: BP 158/91
== END 2018-05-13 22:57 | disposition home or self-care (01) ==
LOC: ED 17:53
DX: S09.90XA Unspecified injury of head, initial encounter (principal); S00.83XA Contusion of other part of head, initial encounter; W19.XXXA Unspecified fall, initial encounter; Y92.9 Unspecified place or not applicable; Z87.891 Personal history of nicotine dependence; Z86.59 Personal history of other mental and behavioral disorders
CPT/HCPCS: 99284; A9270-GY